=== PATIENT | male | born 1965 | race Two or more races ===

== ENCOUNTER 2018-03-19 09:22 | Outpatient (CLI) | payer OTHER | END 2018-03-19 09:30 | disposition home or self-care (01) | LOC: SONOGRAMA 09:22 | DX: D13.1 Benign neoplasm of stomach (principal); K21.9 Gastro-esophageal reflux disease without esophagitis; R10.13 Epigastric pain ==

== ENCOUNTER 2018-03-26 07:28 | Outpatient (CLI) | payer OTHER | END 2018-03-26 08:19 | disposition home or self-care (01) | LOC: NUCLEAR 07:28 | DX: K21.9 Gastro-esophageal reflux disease without esophagitis (principal); D13.1 Benign neoplasm of stomach; K30 Functional dyspepsia | CPT/HCPCS: 78264; A9541 ==